=== PATIENT | male | born 1980 | race Caucasian/White ===

== ENCOUNTER 2023-12-24 12:34 | Emergency (ER) | payer BC ==
[2023-12-24 12:56] VITALS: BP 145/97; PULSE 74
== END 2023-12-24 13:18 | disposition home or self-care (01) ==
LOC: FB.ED 12:34
DX: L60.0 Ingrowing nail (principal); Z79.1 Long term (current) use of non-steroidal anti-inflammatories (NSAID)
CPT/HCPCS: 99283